=== PATIENT | male | born 1980 | race Caucasian/White ===

== ENCOUNTER 2018-04-23 22:42 | Emergency (ER) | payer OTHER ==
[~2018-04-23] VITALS: Ht 182.9 cm; Wt 91.0 kg
[~2018-04-23 22:42] MED LIST: NO HOME MEDS PER PT; PRILOSEC20 MG OR
[2018-04-23] MEDS ORDERED: BACTRIM DS1 TAB PO (23:23)
[2018-04-23] MEDS ORDERED: KEFLEX500 M1 PO (23:23)
[2018-04-23 23:36] VITALS: BP 139/92
== END 2018-04-23 23:40 | disposition home or self-care (01) | DRG 603 ==
LOC: ED 22:42
DX: L01.00 Impetigo, unspecified (principal); L73.9 Follicular disorder, unspecified